=== PATIENT | female | born 1990 | race Caucasian/White ===

== ENCOUNTER 2021-03-24 13:08 | Emergency (ER) | payer SELFPAY ==
[~2021-03-24] VITALS: Ht 175.3 cm; Wt 68.0 kg
[~2021-03-24 13:08] MED LIST: DEPOPROVER IM
[2021-03-24 13:25] VITALS: BP_SYST 122
--- NOTE | 2021-03-24 13:28 | NUR ---
Patient to ER bed 2 to gown for evaluation. Side rails up. Report given to Fredrick THOMPSON.
--- NOTE | 2021-03-24 13:30 | NUR ---
pt came into ER with complaint of right fifth digit and finger nail pain 03/16. pt reports she "smacked her nail on the counter while putting stuff away". pt has fake acrylic nails on. VSS resting in [facility].
--- NOTE | 2021-03-24 14:01 | NUR ---
ER at bedside examining patient.
[2021-03-24] MEDS ORDERED: DIPH-TET-PERTUS Vaccine 0.5 ML VIAL (ADACEL) I.M. ONE (14:15)
[2021-03-24] MEDS ORDERED: LIDOCAINE 1% 10 MG/ML, 20 ML MDV INJ ONE (14:15)
[2021-03-24] MEDS ORDERED: BACITRACIN 1 GM OINT TP ONE (14:15)
--- NOTE | 2021-03-24 14:21 | NUR ---
nail was soaked in betadine solution and cleansed with sterile water and betadine. Dr. Dewitt administered lidocaine and removed artificial nail. pt tolerated procedure well. VSS
[2021-03-24] MEDS ORDERED: IBUP-1969 PO (14:25)
[2021-03-24] MEDS ORDERED: IBUPROFEN 800 MG TABLET PO ONE (14:30)
--- NOTE | 2021-03-24 14:38 | NUR ---
bacitracin ointment applied to finger and covered with 2x2 gauze pad and the wrapped with gauze roll. pt tolerated well VSS.
[2021-03-24 14:39] VITALS: BP_SYST 122
--- NOTE | 2021-03-24 14:39 | NUR ---
Patient given written and verbal discharge instructions and verbalizes understanding. ER MD discussed with patient the results and treatment provided. Patient in stable condition. ID arm band removed. Rx of Motrin given. Patient educated on pain management and to follow up with PMD. Pain Scale 0/10 Opportunity for questions provided and answered. Medication side effect fact sheet provided.
== END 2021-03-24 14:39 | disposition home or self-care (01) ==
LOC: SED 13:08
DX: S61.306A Unspecified open wound of right little finger with damage to nail, initial encounter (principal); Z79.899 Other long term (current) drug therapy; W22.8XXA Striking against or struck by other objects, initial encounter; Y93.89 Activity, other specified; Y92.89 Other specified places as the place of occurrence of the external cause; Y99.8 Other external cause status
CPT/HCPCS: 11730; 90471; 90715; 99284; J2001